=== PATIENT | male | born 1960 | race Caucasian/White ===

== ENCOUNTER 2022-11-25 09:20 | Day surgery (SDC) | payer BC, SELFPAY ==
[2022-11-25 09:45] VITALS: BP 166/101; PULSE 69; RESP 20; TEMP 36.2; O2SAT 96
[2022-11-25 09:47] VITALS: BMI 38.9
[2022-11-25] MEDS: SODIUM CHLORIDE 0.9 % (FLUSH) 10 ML SYRINGE IVF (10:00)
[2022-11-25] MEDS: LACTATED RINGERS 1000 ML 1,000 ML 100 ML IV (10:20)
[2022-11-25] MEDS: CEFAZOLIN 2 GM INJ IVP (10:45)
[2022-11-25] MEDS: BUPIVACAINE 0.25% 30 ML 10 ML INJECTION (10:50)
--- NOTE | 2022-11-25 11:16 | P.GSOP_ITS ---
Operative Note Date of procedure: 11/25/22 Pre-op diagnosis: Squamous cell carcinoma in Situ, dorsum of right hand Post-op diagnosis: Same Type of Procedure: Wide local excision of skin lesion on dorsum of right hand with primary closure Indications: Patient is a 62-year-old male, who presented to clinic with a nonhealing lesion. Biopsy of the area demonstrated squamous cell carcinoma in Situ. Due to the location of the lesion it was recommended that he pursue wide local excision in the operating room. Risks and benefits of operative intervention were discussed at length with the patient. Risks included but was not limited to: Bleeding, infection, risk of damage to surrounding structures, possible need for additional procedures and postoperative complications such as pneumonia, pulmonary emboli or IL. All questions and concerns were addressed with the patient agreeing to proceed. Procedure Description: After discussing the risks and benefits of the procedure, the patient signed informed consent.? The operative site was marked and the patient was brought to the operating room and placed on the operating table in supine position.? Care was taken to pad the patient's pressure points.?? The patient was then given sedation by anesthesia.?? The operative site was then prepped and draped in the usual sterile fashion.? A time-out was then performed. 1% lidocaine with epinephrine was injected into the surgical field. A vertical elliptical incision was made around the lesion with a scalpel to allow excision of .7 cm lesion with 0.5 cm margins (total width 1.5 cm). Subcutaneous tissues were dissected with a scalpel and the ellipse of skin was excised with a scalpel. It was marked with a marking short stitch superiorly and long stitch laterally. The lesion was then sent to pathology. Surgical field was examined for bleeding and any oozing was controlled with direct pressure and hand held ca utery. The incision was 6 cm and was closed in layers with 3-0 vicryl interrupted stitches for subdermal layer and with 4-0 monocryl subcuticular running stitch for skin. Steris strips and sterile dressing were applied over the incision. ? The patient tolerated the procedure well. Findings: Squamous cell carcinoma in Situ on the dorsum of the right hand Anesthesia: MAC Surgeon: Ary Mead MD Estimated blood loss (mL): 5 Additional Specimen Information: Skin lesion, dorsum of right hand Condition: stable Disposition: same day
[2022-11-25 11:20] VITALS: BP 114/73; PULSE 60; RESP 20; TEMP 36.8; O2SAT 95
--- NOTE | 2022-11-25 11:22 | W.ANESCHARGE ---
Anesthesia Charges Start Date/Time Anesthesia Start Date: 11/25/22 Anesthesia Start Time: 10:37 Stop Date/Time Anesthesia Stop Date: 11/25/22 Anesthesia Stop Time: 11:24
[2022-11-25 11:35] VITALS: BP 113/73; PULSE 56; RESP 20; O2SAT 95
[2022-11-25 11:45] VITALS: BP 116/65; PULSE 60; RESP 20; TEMP 36.8; O2SAT 93
[2022-11-25 12:00] VITALS: BP 132/85; PULSE 65; RESP 20; TEMP 36.5; O2SAT 96
--- NOTE | 2022-11-25 14:28 | W.ANESCHARGE ---
Anesthesia Charges Start Date/Time Anesthesia Start Date: 11/25/22 Anesthesia Start Time: 10:37 Stop Date/Time Anesthesia Stop Date: 11/25/22 Anesthesia Stop Time: 11:24
== END 2022-11-25 12:18 | disposition home or self-care (01) ==
PROVIDERS: PCP Surgery; Visit Provider Surgery
PROC: (CPT 11622; principal; 2022-11-25 10:45)
DX: C44.622 Squamous cell carcinoma of skin of right upper limb, including shoulder (principal)
CPT/HCPCS: 11622; 12042; 400; 88305; J0690; J2250; J2704; J3010; J3490; J7120

== ENCOUNTER 2022-12-08 07:41 | Day surgery (SDC) | payer BC, SELFPAY ==
[2022-12-08] VITALS (15 sets, daily range): BP systolic 127–164; BP diastolic 61–93; PULSE 68–83; RESP 16–20; TEMP 36.1–36.4; O2SAT 92–98; BMI 38.9
[2022-12-08] MEDS: LACTATED RINGERS 1000 ML 1,000 ML 100 ML IV ×2 (08:10→10:34)
[2022-12-08] MEDS: SODIUM CHLORIDE 0.9 % (FLUSH) 10 ML SYRINGE IVF (08:10)
[2022-12-08] MEDS: fentaNYL 100 MCG/2 ML inj IVP (08:34)
--- NOTE | 2022-12-08 08:34 | SUR.PREOP ---
Patient provided home covid negative results to RN.
--- NOTE | 2022-12-08 08:34 | SUR.PREOP ---
TIME?OUT:?0832 PT/[place] RN/Dr. Luis M MDA?VERIFICATION?OF?SURGICAL?SITE left shoulder,?PROCEDURE,?AND?CONSENT OBTAINED?PRIOR?TO?INVASIVE?PROCEDURE.
[2022-12-08] MEDS: MIDAZOLAM HCL 1 MG/ML inj IVP (08:35)
[2022-12-08] MEDS: CEFAZOLIN 2 GM in 0.9 % SODIUM CHLORIDE Mini-bag 100 ML IVPB (09:10)
--- NOTE | 2022-12-08 09:16 | W.PM.NB ---
Nerve Block Nerve Block Time Seen by Provider: 08:34 Date Seen: 12/08/22 Type of block requested by surgeon for post-operative analgesia: supraclavicular Side: left Time out performed: Yes Verification of patient name: Yes Verification of date of : Yes Site marking: site marked Name of person performing procedure: Luis M Continuous monitoring Was continuous monitoring of O2 sat, B/P, front desk monitor, recorded every 15 minutes?: Yes Procedure Checklist: sterile prep, needles and gloves Ultrasound guided. Images saved: Yes Medications given in 5ml increments after negative aspiration: Ropivicaine %: 0.5 mL: 20 Needle gauge: 22 Decadron (mg): 10 Precedex (mcg): 25 Patient tolerated procedure well: Yes Block Charges Block Charge (with Pro Fee): Brachial Plexus Use of Ultrasound Machine for Block: Yes- US Guidance/pain block
--- NOTE | 2022-12-08 09:16 | W.ANESCHARGE ---
Anesthesia Charges Start Date/Time Anesthesia Start Date: 12/08/22 Anesthesia Start Time: 08:58 Stop Date/Time Anesthesia Stop Date: 12/08/22 Anesthesia Stop Time: 11:45
[2022-12-08] MEDS: EPINEPHrine 1 MG in SODIUM CHLORIDE IRRIG SOLUTION 3,000 ML 9003 MG IRRIGATION ×6 (09:39→10:52)
--- NOTE | 2022-12-08 11:14 | PM.ORPRC ---
Procedure Note Date of procedure: 12/08/22 Procedure: PREOPERATIVE DIAGNOSES: 1. Left shoulder rotator cuff retear (history of prior rotator cuff repair remote past) 2. Carpal tunnel syndrome 3. Left ring trigger finger-flexor tenosynovitis POSTOPERATIVE DIAGNOSES: 1. Left shoulder rotator cuff retear (history of prior rotator cuff repair remote past) 2. Left shoulder anterior labral tearing 3. 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 Left shoulder grade 2 chondromalacia glenoid 5. Left shoulder retained foreign body (Ethibond suture from prior rotator cuff repair) 6. Carpal tunnel syndrome 7. Left ring trigger finger-flexor tenosynovitis NAME OF OPERATION: 1. Left shoulder arthroscopic rotator cuff rerepair supraspinatus and anterior infraspinatus 2. Left shoulder arthroscopic extensive glenohumeral debridement 3. Left shoulder arthroscopic removal of foreign body (Ethibond suture from prior rotator cuff repair) 4. Left open carpal tunnel release 5. Left ring trigger finger release. SURGEON: Arthur Zuñiga MD SENIOR RESTAURANT MANAGER: Paul Ambrose PA-C. Of note, a skilled judicial assistant was critical for this case to aide in patient positioning, suture manipulation, arm positioning, instrument positioning, and closure. ANESTHESIA: General plus preoperative supraclavicular block. EBL: Less than 50 mL IMPLANTS: Arthrex 5.5 mm BioComposite corkscrew suture anchor (x2); 5.5 mm BioComposite SwiveLock suture anchor (x2) TOURNIQUET: 10 minutes at 225 torr-forearm tourniquet COMPLICATIONS: None evident INDICATIONS: The patient is a pleasant, 62-year-old male who previously the experience rotator cuff tear and underwent surgical repair in the remote past. In recent time, he has noted increasing pain, weakness, and dysfunction of the left shoulder. Workup included physical exam and MRI. These both confirmed rotator cuff tearing. In addition, he has also experienced left hand numbness and tingling in the radial 3.5 digits as well as triggering/catching in his left ring finger. With all these factors, surgery is indicated for left shoulder rotator cuff rerepair, open carpal tunnel release, and open trigger finger release left ring finger. FINDINGS: Exam under anesthesia revealed stable shoulder with excellent range of motion. The diagnostic arthroscopy revealed grade 3 chondromalacia humeral head with some loose chondral tissue as well as grade 2 chondromalacia glenoid. The Subscapularis tendon was intact with a healthy attachment. The long head of the biceps tendon was intact also with a healthy origin. The superior rotator cuff tendon was found to be torn full-thickness throughout the breath of the supraspinatus and anterior 1/2 of the infraspinatus. There was retraction. Previous Ethibond suture was also encountered and removed during the procedure with a combination of arthroscopic scissors and Welaka. The labrum was torn in the anterior and superior aspects. No loose bodies were identified within the pouch or subscapularis recess. PROCEDURE: Following a thorough discussion of risks, benefits, and alternatives, consent was obtained and the left shoulder was marked. The patient was brought to the operating room and placed supine on the operating table. Induction of anesthesia was completed after preoperative supraclavicular block was administered in preop holding. Appropriate time out was performed identifying proper patient, site, and procedure. 2 g IV Ancef was administered within 1 hour of incision preoperatively. The left upper extremity was prepped and draped in the appropriate sterile fashion using ChloraPrep prep. This was after the patient was positioned in the beach chair with their head in neutral alignment and all bony prominences well padded. The shoulder was insufflated with 20mL of normal saline via an 18g spinal needle from a posterior approach. An 11 blade skin incision allowed a blunt trochar to be inserted and diagnostic arthroscopy to be performed with the findings as noted above. An anterior portal was established with an outside in technique. This allowed the probe to be inserted and confirm the diagnostic arthroscopic findings. The shaver was then inserted and allowed debridement of the anterior and superior labrum as well as debridement of the glenoid and humeral head chondral tissue loose chondral flaps. Following this, the upper border subscapularis was probed and found to be stable with an excellent attachment as was the biceps. Thereafter, the subacromial space was entered. Here, given a previous subacromial decompression and distal clavicle excision were performed and were adequate, these procedures were not necessary. Here, the Ethibond suture was readily encountered. This was removed with a combination of arthroscopic scissors and Welaka to grasp the entire suture and removed from subacromial space/humeral head. Further inspection of the supraspinatus and infraspinatus rotator cuff was performed. This identified the tear as noted above. The margins of the tear were debrided, and the greater tuberosity was debrided with a combination of the apollo cautery, shaver, and bur on reverse setting. After gentle decortication of the humeral head with a torpedo shaver, 2 separate 5.5 mm corkscrew suture anchors were selected for medial fixation. This allowed us to pass the double loaded anchor tails and tied down the medial row taking the tension off gradually from her repair. This allowed excellent reapproximation of the rotator cuff tissue to the greater tuberosity. Beyond that, 2 lateral row SwiveLock suture anchors were selected with 1 tail from each of the tied knots brought to each of the lateral row anchors. Excellent footprint compression was achieved. The shoulder was placed through range of motion with excellent stability to the rotator cuff. At this stage, attention was turned to the left open carpal tunnel release. A forearm tourniquet sterilely was applied, a ChloraPrep was reapplied to the hand, and after allowing 3 minutes dry, and the tourniquet inflated after Esmarch exsanguination, a longitudinal incision was made in line with the radial border the ring finger staying proximal to Sullivan's cardinal line but approximately 1 cm distal to the distal wrist crease. Sharp incision through skin, subcutaneous tissue, palmar fascia, and transverse carpal ligament allowed us to clearly identify complete release of the carpal tunnel from proximal to distal extents. Metzenbaum scissors was also utilized to release the distal forearm fascia under direct visualization. We then turned our attention to the left ring trigger finger release. A longitudinal incision was made in line with the ring finger metacarpal head region. Sharp incision through skin and blunt dissection through subcutaneous tissue allowed identification of the A1 toi. This was released sharply with a combination of 15 blade scalpel and tenotomy scissors. We could see the entire extent of the toi to be released. The tendons were then retracted out of the wound and shows some striations within the tendon itself. At this stage, thorough irrigation normal saline was performed of the open wounds. All wounds were closed in interrupted fashion. For the shoulder, Monocryl suture was used in a buried knot manner. For the hand, 4-0 nylon was utilized in in interrupted fashion. Dressings were applied. Sling was applied. The patient was awoken from anesthesia and transferred to the PACU in stable condition. A skilled judicial assistant was critical for this case to aid in patient positioning, limb positioning, skill to manipulate arthroscopic instruments and camera, suture management, patient safety, and closure. PLAN: 1. Elbow, forearm, wrist and digit range of motion of operative extremity as tolerated. 2. Encouraged ice. 3. Percocet for pain as needed. 4. Sling at all times except for ROM and showering. 5. Follow up with PA visit in 1-2 weeks for wound check and suture removal for the hand. Initiate physical therapy following that visit for passive range of motion. Initiate active assisted range of motion at 4 weeks depending on tear size. May do pendulums now.
--- NOTE | 2022-12-08 11:55 | W.ANESCHARGE ---
Anesthesia Charges Start Date/Time Anesthesia Start Date: 12/08/22 Anesthesia Start Time: 08:58 Stop Date/Time Anesthesia Stop Date: 12/08/22 Anesthesia Stop Time: 11:45
[2022-12-08] MEDS: OxyCODONE/APAP 5-325 TABLET PO (13:05)
== END 2022-12-08 13:47 | disposition home or self-care (01) ==
PROVIDERS: PCP Surgery; Visit Provider Orthopaedic Surgery Sports Medicine
PROC: (CPT 29805; principal; 2022-12-08 09:15)
PROC: (CPT 64721; 2022-12-08 09:15)
PROC: (CPT 26055; 2022-12-08 09:15)
DX: M75.102 Unspecified rotator cuff tear or rupture of left shoulder, not specified as traumatic (principal); G56.02 Carpal tunnel syndrome, left upper limb; M65.342 Trigger finger, left ring finger; G89.18 Other acute postprocedural pain; M94.212 Chondromalacia, left shoulder; S43.432A Superior glenoid labrum lesion of left shoulder, initial encounter
CPT/HCPCS: 64721; 26055; 29827; 29823; 01630; 64415; 76942; 82962; A9270; C1713; J0171; J0330; J0690; J1100; J2250; J2370; J2405; J2704; J2795; J3010; J7120; L3670

== ENCOUNTER 2023-03-02 13:45 | Outpatient (RCR) | payer BC, SELFPAY | END 2023-05-16 09:10 | disposition home or self-care (01) | PROVIDERS: PCP Surgery; Visit Provider Physician Assistant Surgical | DX: Z98.890 Other specified postprocedural states (principal); Z51.89 Encounter for other specified aftercare | CPT/HCPCS: 97035; 97110; 97140; 97162; 97165 ==

== ENCOUNTER 2023-11-15 16:54 | Emergency (ER) | payer BC, SELFPAY ==
[2023-11-15 17:06] VITALS: BP 196/100; PULSE 87; RESP 18; TEMP 36.7; O2SAT 96; BMI 37.9
--- NOTE | 2023-11-15 17:31 | ED_ITS ---
HPI - Extremity Injury (Upper) General Chief Complaint: Extremity Pain/Injury, Upper Stated Complaint: L arm broke Time Seen by Provider: 11/15/23 17:26 History of Present Illness HPI narrative: This 63-year-old male comes in with an injury to his right wrist. He states that he was walking out of his garage and slipped on ice and fell onto his right outstretched hand. He states he noted a deformity immediately and attempted to correct the position prior to coming here. He does not describe any other injury. He did not have loss of consciousness. Related Data Home Medications Medication Instructions Recorded Confirmed blood sugar diagnostic (Accu-Chek #10 ea 10/08/22 03/08/23 Treasure Plus test strips) ergocalciferol (vitamin D2) 1,250 50,000 unit PO 2XW 10/08/22 11/15/23 mcg (50,000 unit) capsule (Vitamin D2) fenofibrate micronized 200 mg 200 mg PO QDAY 10/08/22 11/15/23 capsule fluticasone propionate 50 2 spray intranasal BID 10/08/22 11/15/23 mcg/actuation nasal spray,suspension losartan 100 mg tablet 100 mg PO DAILY 10/08/22 11/15/23 metoprolol succinate 100 mg 100 mg PO DAILY 10/08/22 11/15/23 tablet,extended release 24 hr pantoprazole 40 mg tablet,delayed 40 mg PO DAILY 10/08/22 11/15/23 release pen needle, diabetic 31 gauge x #1,200 ea 10/08/22 03/08/2316 (BD Ultra-Fine Short Pen Needle) aspirin 81 mg tablet,delayed 81 mg PO QDAY 10/12/22 11/15/23 release insulin glargine 100 unit/mL (3 unit subcut 11/15/23 mL) subcutaneous pen (Lantus Solostar U-100 Insulin) Previous Rx's Medication Instructions Recorded hydrocodone 5 mg-acetaminophen 325 1 tab PO Q4-6H PRN pain #20 tabs 11/15/23 mg tablet Allergies Allergy/AdvReac Type Severity Reaction Status Date / Time adhesive tape Allergy Rash Verified 03/08/23 09:51 amoxicillin [From Augmentin] Allergy nausea/vomi Verified 03/08/23 09:51 ting clavulanic acid Allergy nausea/vomi Verified 03/08/23 09:51 [From Augmentin] ting codeine Allergy Hives Verified 03/08/23 09:51 latex Allergy Rash Verified 03/08/23 09:51 lisinopril Allergy Cough Verified 03/08/23 09:51 metformin Allergy Rash Verified 03/08/23 09:51 rosuvastatin Allergy myalgia Verified 03/08/23 09:51 gemfibrozil AdvReac constipatio Verified 03/08/23 09:51 n Review of Systems Status of ROS: Reports: 10 or more systems reviewed and unremarkable except as noted in History and below Narrative: Constitutional: No fevers, no weight gain or loss. Eyes: No discharge. No vision changes. HENT: No congestion, no sore throat, no ear pain. Cardiovascular: No chest pain, no palpitations. Respiratory: No shortness of breath, no wheezes, no cough. Gastrointestinal: No abdominal pain, no vomiting, no diarrhea. Genitourinary: No dysuria, no hematuria. Musculoskeletal: Right wrist injury as described above. Skin: No rashes, no pruritis. Neurological: No dizziness, weakness, sensory change, speech change. Endo/Heme/Allergies: No bruising or bleeding. No polydipsia. Pysch: no suicidality, no anxiety, no insomnia. All other systems reviewed and are negative. [facility] Medical History Shoulder pain ?M25.519 - Pain in unspecified shoulder (ICD-10) Right shoulder pain ?M25.511 - Pain in right shoulder (ICD-10) Right knee pain ?M25.561 - Pain in right knee (ICD-10) Pain of right hand ?M79.641 - Pain in right hand (ICD-10) Vitamin D deficiency ?E55.9 - Vitamin D deficiency, unspecified (ICD-10) KANDI (obstructive sleep apnea) ?G47.33 - Obstructive sleep apnea (adult) (pediatric) (ICD-10) Myalgia ?M79.10 - Myalgia, unspecified site (ICD-10) Mixed hyperlipidemia ?E78.2 - Mixed hyperlipidemia (ICD-10) Lumbar spinal stenosis ?M48.061 - Spinal stenosis, lumbar region without neurogenic claudication (ICD-10) Hypertension ?I10 - Essential (primary) hypertension (ICD-10) GERD (gastroesophageal reflux disease) ?K21.9 - Gastro-esophageal reflux disease without esophagitis (ICD-10) Pancreatitis ?K85.90 - Acute pancreatitis without necrosis or infection, unspecified (ICD- 10) Diabetes mellitus ?E11.9 - Type 2 diabetes mellitus without complications (ICD-10) Surgical History S/P trigger finger release (12/08/22) ?Z98.890 - Other specified postprocedural states (ICD-10) History of carpal tunnel surgery of left wrist (12/08/22) ?Z98.890 - Other specified postprocedural states (ICD-10) Status post arthroscopy of left shoulder (12/08/22) ?Z98.890 - Other specified postprocedural states (ICD-10) Hx of tonsillectomy ?Z90.89 - Acquired absence of other organs (ICD-10) History of open reduction and internal fixation (ORIF) procedure (~1995) ?Z98.890 - Other specified postprocedural states (ICD-10) History of open reduction and internal fixation (ORIF) procedure (~1992) ?Z98.890 - Other specified postprocedural states (ICD-10) History of repair of left hip joint ?Z98.890 - Other specified postprocedural states (ICD-10) History of back surgery ?Z98.890 - Other specified postprocedural states (ICD-10) Status post arthroscopy of left shoulder (08/04/04) ?Z98.890 - Other specified postprocedural states (ICD-10) S/P trigger finger release (07/11/18) ?Z98.890 - Other specified postprocedural states (ICD-10) History of carpal tunnel surgery of right wrist (07/11/18) ?Z98.890 - Other specified postprocedural states (ICD-10) Status post right rotator cuff repair (09/03/20) ?Z98.890 - Other specified postprocedural states (ICD-10) Social History (Reviewed 11/09/22 @ 14:27 by Bren Oakes ~ RESIDENCY PROGRAM COORDINATOR, RESIDENCY PROGRAM COORDINATOR) Smoking Status: Never smoker Do you use any of these nicotine containing products: None Second hand tobacco smoke exposure: No How often do you have a drink containing alcohol: 2-3 times a week How often do you have six or more drinks on one occasion: Never AUDIT-C Alcohol total score: 3 Non-prescribed substance use: denies use Exam Narrative: Exam Narrative: Constitutional: Well-developed, well-nourished, no acute distress. HEENT: Normocephalic, atraumatic. Neck: Normal range of motion. Nontender. Supple. Heart: Regular. No murmurs. Normal rate. Intact distal pulses. Lungs: Clear to auscultation. No chest discomfort. No wheezes, rhonchi, or rales. Abdomen: Normal bowel sounds. Nontender. No rebound tenderness. Genitalia: Deferred. Back: No midline tenderness. Normal range of motion. Extremities: Tenderness at the right wrist. Mild deformity In this area. Skin: Intact. No rash. Warm. No erythema or pallor. Neurologic: No altered sensation. No weakness. Alert and oriented. Psychiatric: No suicidality. No anxiety or depression. No insomnia. Nursing notes and vitals signs are reviewed. Const: Vital Signs, click to edit/add: Vital Signs - 24 hr 11/15/23 17:06 Temperature 98.0 F Pulse Rate [Right Pulse Oximeter] 87 Respiratory Rate 18 Blood Pressure [Ri ght Upper Arm] 196/100 H Pulse Oximetry 96 Oxygen Delivery Me thod Room Air Course Vital Signs Vital signs: Initial Vital Signs Temperature 98.0 F 11/15/23 17:06 Temperature Source Temporal Artery Scan 11/15/23 17:06 Pulse Rate 87 11/15/23 17:06 Respiratory Rate 18 11/15/23 17:06 Blood Pressure 196/100 H 11/15/23 17:06 Blood Pressure Mean 132 H 11/15/23 17:06 Blood Pressure Position Sitting 11/15/23 17:06 Pulse Oximetry 96 11/15/23 17:06 Oxygen Delivery Method Room Air 11/15/23 17:06 Vital Signs Temperature 98.0 F 11/15/23 17:06 Pulse Rate 87 11/15/23 17:06 Respiratory Rate 18 11/15/23 17:06 Blood Pressure 196/100 H 11/15/23 17:06 Pulse Oximetry 96 11/15/23 17:06 Oxygen Delivery Method Room Air 11/15/23 17:06 Temperature 98.0 F 11/15/23 17:06 Pulse Rate 87 11/15/23 17:06 Respiratory Rate 18 11/15/23 17:06 Blood Pressure 196/100 H 11/15/23 17:06 Pulse Oximetry 96 11/15/23 17:06 Oxygen Delivery Method Room Air 11/15/23 17:06 MDM - Extremity Injury (Upper) MDM Narrative Medical decision making narrative: This patient comes in with an injury to his right wrist. He states that there was an obvious deformity when the injury 1st occurred and he used his left hand to correct its position rather immediately after the injury. X-ray imaging here does show intra-articular compacted fracture of the distal radius and likely and ulnar involvement. The position is satisfactory for splinting without any further manipulation. A volar splint was placed in the right forearm and wrist using Ortho Glass material. Patient is advised to follow-up with orthopedic clinic. He did receive an intramuscular injection of Toradol and a prescription for [place]. Discharge Plan Discharge Clinical Impression: Fracture of wrist Patient Disposition: Home, Self-Care Condition: Stable Additional Instructions: Wear splint and sling. Take medication as needed and directed. Follow-up with orthopedic clinic for ongoing management. Call [phone] for appointment. Prescriptions: New hydrocodone-acetaminophen 5-325 mg tablet 1 tab PO Q4-6H PRN (Reason: pain) Qty: 20 0RF No Action losartan 100 mg tablet 100 mg PO DAILY (DME) Accu-Chek Treasure Plus test strp Strip See Rx Instructions .ROUTE .MEDSUPPLY Qty: 10 Rx Instructions: As directed (DME) pen needle, diabetic [BD Ultra-Fine Short Pen Needle] 31 gauge x 5/16 needle See Rx Instructions .ROUTE .MEDSUPPLY Qty: 1200 Rx Instructions: As directed ergocalciferol (vitamin D2) [Vitamin D2] 1,250 mcg (50,000 unit) capsule 50,000 unit PO 2XW Rx Instructions: and pantoprazole 40 mg tablet,delayed release (DR/EC) 40 mg PO DAILY fenofibrate micronized 200 mg capsule 200 mg PO QDAY metoprolol succinate 100 mg tablet extended release 24 hr 100 mg PO DAILY fluticasone propionate 50 mcg/actuation spray,suspension 2 spray intranasal BID aspirin 81 mg tablet,delayed release (DR/EC) 81 mg PO QDAY insulin glargine [Lantus Solostar U-100 Insulin] 100 unit/mL (3 mL) insulin pen subcut Follow Up/Referrals: Paul Medina MD [Primary Care Provider] - Stand Alone Forms: [employer] Info Instructions
--- NOTE | 2023-11-15 17:31 | CRLHL7_ITS ---
For Patients: As a result of the Century Cures Act, medical imaging exams and procedure reports are released immediately into your electronic medical record. You may view this report before your referring provider. If you have questions, please contact your health care provider. INDICATION: Fall. TECHNIQUE: Right wrist 3 view. COMPARISON: None. FINDINGS: There is an acute comminuted intra-articular fracture of the distal radius. No significant displacement. Acute mildly displaced fracture of the ulnar styloid process. Possible fracture in the distal pole of the scaphoid bone. No dislocation. Mild degenerative changes of the 1st CMC joint. Soft tissue swelling about the wrist. IMPRESSION: 1. Acute comminuted intra-articular fracture of the distal radius. 2. Acute mildly displaced fracture of the ulnar styloid process. 3. Possible fracture in the distal pole of the scaphoid bone. Dictated by Ryann Matos MD @ 11/15/2023 6:25:10 PM (Electronically Signed)
--- OUTSIDE RECORDS SUMMARY | 2023-11-15 17:41 | XMS_ITS | Clinical Summary ---
Author Name Unknown Organization [employer] [facility] [facility] Address [place], [place] [address] Care Team Providers Care Audiology Doctor Name Role Phone Paul Medina MD Primary Care Provider [phone] Allergies Active Allergy Reactions Criticality Noted Date Comments Adhesive Tape-Silicones Rash 07/16/2011 Foam tape Amoxicillin-Pot Clavulanate Nausea And Vomiting 01/21/2015 Venom-Honey Bee Edema 08/05/2017 Codeine Rash 01/14/2007 Gemfibrozil Constipation,Intoler ance- Can't Take 01/13/2010 Latex Rash 05/21/2014 Lisinopril Cough 02/09/2019 Metformin Rash 08/05/2017 [place]-3 Acid Ethyl Esters Constipation 01/14/20 10 Etuzs-3-Itm-Epa-Fish Oil-Coq10 Taste, Changes 01/13/2010 Rosuvastatin Myalgia 12/07/2021 Medications Medication Sig Dispensed Refills Start Date End Date Status blood-glucose meterIndications:Ty pe 2 diabetes mellitus without complication, with long-term current use of insulin (HC) 1 Device. Check blood sugars 6 times per day 1 Device 0 9 Active aspirin (ECOTRIN) 81 mg enteric coated tabletIndications:T ype 2 diabetes mellitus without complication, with long-term current use of insulin (HC) Take 1 Tablet (81 mg) by mouth once daily with a meal. 90 tablet. 0 2 Active fluticasone (50 mcg per actuation) nasal solution (FLONASE)Indication s:Nasal congestion APPLY TWO SPRAYS INTO BOTH NOSTRILS TWICE A DAY 48 g 2 2 Active blood sugar diagnostic (Accu-Chek Treasure Plus test strp) stripIndications:Ty pe 2 diabetes mellitus without complication, with long-term current use of insulin (HC) USE TO TEST BLOOD GLUCOSE 3 TIMES DAILY DIRECTED 600 Each 3 2 Active ergocalciferol (Vitamin D2) 50,000 unit capsuleIndications: Vitamin D deficiency Twice weekly on Wednesdays and Saturdays 25 Capsule 3 2 Active fenofibrate micronized (LOFIBRA) 200 mg capsuleIndications: Hyperlipidemia, unspecified hyperlipidemia type Take 1 Capsule (200 mg) by mouth once daily with a meal. 90 Capsule 3 3 Active ferrous sulfate 325 mg delayed release tabletIndications:A nemia, unspecified type Take 1 Tablet (325 mg) by mouth once daily with a meal. 90 Tablet 3 3 Active insulin detemir U-100 (LEVEMIR) 100 unit/mL (3 mL) penIndications:Type 2 diabetes mellitus with diabetic polyneuropathy, with long-term current use of insulin (HC) Inject 100 units subcutaneous two times daily. 180 mL 3 3 Active losartan (COZAAR) 100 mg tabletIndications:H ypertension, unspecified type Take 1 Tablet (100 mg) by mouth once daily. 90 Tablet 3 3 Active metoprolol succinate (TOPROL XL) 100 mg Sustained-Release tabletIndications:H ypertension, unspecified type Take 1 Tablet (100 mg) by mouth once daily. Do not fill until requested 90 Tablet 3 3 Active pantoprazole (PROTONIX) 40 mg delayed-release tabletIndications:D ysphagia, unspecified type Take 1 Tablet (40 mg) by mouth once daily. 90 Tablet 3 3 Active pen needle, diabetic (BD Insulin Pen Needle UF) 31 gauge x 5/16Indications:Ty pe 2 diabetes mellitus without complication, with long-term current use of insulin (HC) For administering insulin at home. 200 Each 3 3 Active amLODIPine (NORVASC) 5 mg tabletIndications:H ypertension, unspecified type Take 1 Tablet (5 mg) by mouth once daily. 90 Tablet 3 3 Active evolocumab (Repatha SureClick) 140 mg/mL subcutaneous pen injectorIndications :Hyperlipidemia, unspecified hyperlipidemia type Inject 1 mL (140 mg) subcutaneous every 2 weeks. Inject into abdomen, thigh, or upper arm; rotate injection sites. 6 mL 0 3 Active Lantus Solostar U-100 Insulin 100 unit/mL (3 mL) penIndications:Type 2 diabetes mellitus with diabetic polyneuropathy, with long-term current use of insulin (HC) Inject 100 units subcutaneous two times daily. Product desired: LANTUS SOLOSTAR 180 mL 3 4 Active semaglutide (Ozempic) 2 mg/3 mL penIndications:Type 2 diabetes mellitus with diabetic polyneuropathy, with long-term current use of insulin (HC) Inject 0.75 mL (0.5 mg) subcutaneous once weekly. 3 mL 2 4 Active semaglutide (Ozempic) 2 mg/3 mL penIndications:Type 2 diabetes mellitus with diabetic polyneuropathy, with long-term current use of insulin (HC) Inject 0.375 mL (0.25 mg) subcutaneous once weekly for 28 days, THEN 0.75 mL (0.5 mg) once weekly for 28 days. 3 mL 1 3 11/09/19 24 Discontinu ed(*Medica tion adjustment ) Active Problems Problem Noted Date Diagnosed Date Ectatic aorta 11/13/2023 Overview: 3.2 cm on ultrasound 10/2023 - repeat recommended 3 years COVID-19 virus infection 03/16/2023 Sensorineural hearing loss, bilateral 12/02/2022 Spondylolisthesis 02/04/2022 Spinal stenosis, lumbar juan alberto on, with neurogenic claudication 02/04/2022 Type 2 diabetes mellitus wit h diabetic polyneuropathy, with long-term current use of insulin 09/03/2021 KANDI (10/11/2005 AHI-34 02/26/2019 Gastroesophageal reflux disease 09/06/2017 Allergic rhinitis 03/08/2013 Recurrent pancreatitis 07/16/2011 S/P Lumbar L4-Sacrum Fusion 01/08/2010 Vitamin D deficiency 04/16/2009 Single vessel CAD (mod stenosis LAD per CTA 01/28 ) 08/29/2008 Pulmonary nodules 07/31/2008 Overview: Stable in 2013 with no further follow up recommended. Unspecified essential hypertension 07/17/2007 Other and unspecified hyperlipidemia 01/16/2007 Resolved Problems Problem Noted Date Diagnosed Date Resolved Date Type 2 diabetes mellitus wit hout complication, with long-term current use of insulin 09/06/2017 11/04/2022 Prediabetes 12/10/2014 09/06/2017 Hydrocele, left 05/12/2014 12/10/2014 Routine adult health maintenance 04/30/2013 05/12/2014 Overview: Colonoscopy 04/2013 small NSAID ulcer on ICV, repeat in 10 years Vitamin D deficiency 02/11/2012 014 Right hydrocele 01/11/2012 03/08/2013 Obesity, unspecified 11/05/2011 023 Myalgia and myositis, unspecified 11/05/2011 11/04/2022 Acute pancreatitis 03/09/2010 1 High triglycerides 01/31/2009 4 Sleep apnea 08/29/2008 11/04/2022 Other diseases of lung, not elsewhere classified 08/11/2007 01/16/2020 ABNORMAL GLUCOSE, OTHER 07/17/200711/24 Overview: pre-diabetes Chest pain, unspecified 01/16/2007 1103/2008 Encounters Date Type Department Care Team Description 11/09/[address] [facility] [address] [place] [address] Hallie Drake NP Follow Up (Patient requests to hold off until January 2024 for prevention fu.) 11/09/[address] [facility] [address] [place] [address] Hallie Drake, PARLIAMENTARY ARCHIVIST Cardiology Appointment 11/08/2023 10:30 AM QUANTITATIVE ANALYST DEVELOPER Ancillary Procedure [facility] [address] [place] [address] 11/08/2023 Travel 11/05/2023 Travel 11/02/[address] [facility] [address] [place] [address] Hallie Drake NP Cardiology Appointment 10/25/2023 10:55 AM QUANTITATIVE ANALYST DEVELOPER Office Visit [facility] [address] [place] [address] Paul Medina MD Medicare FIRST ANNUAL Visit (63 yr old male) 10/25/2023 Travel 10/20/[address] [facility] [address] [place] [address] Hallie Drake NP <No scans attached> 10/20/2023 Travel 10/12/2023 9:00 AM QUANTITATIVE ANALYST DEVELOPER Office Visit [address] [place] [address] Jerrica Damon MD Consult; CV Preventive Cardiology New (chol) 10/12/[address] [place] [address] Jerrica Damon MD 10/12/[address] [place] [address] Jerrica Damon MD 10/09/2023 Travel from Last 3 Months Immunizations Name Administration Dates Next Due AMB Influenza, IIV4 PF (=>6 mos Flulaval,Fluzone Fluarix)(Flu Clinic Only) 08/11/2019 COVID-19 Vaccine Spikevax (M oderna 50mcg/0.5mL) 12YO+ [id number] Formula PF 08/30/2023 COVID-19 vaccine ([employer]-Bio NTech 30mcg/0.3mL) 12YO+ BIVALENT PF, MDV 08/10/2022 COVID-19 vaccine (Pfizer-Bio NTech 30mcg/0.3mL) PF MDV 08/26/2021,02/10/2021,01/20/2021 Influenza, IIV3 (Age >=3 years) 07/20/20 20,07/31/2017,08/02/2013,2010,08/11/2007 Influenza, IIV4 08/10/2022, 1,07/20/2020,2017,08/20/2014 Influenza, IIV4 (=>6mos) MDV 07/31/2017 Influenza, Inactivated AIIV4 (Age 65+ Years) Preserv Free 07/22/2023 Pneumococcal Conj 20-valent (Prevnar 20) 07/22/2023 Pneumococcal conj 13-Valent (Prevnar 13) 10/05/2021 Td (Age >=7 Years) 08/24/2005 Tdap 03/04/2016 Zoster (Shingrix-RZV, recombinant) 08/28/2019, Family History Medical History Relation Name Comments Hypertension Brother 2 x 2 Other Brother 3 cirrhosis--alco hol Lung cancer Father Other Father COPD Leukemia Maternal Grandmother Cancer-breast Mother Heart attack Mother Other Mother COPD Hyperlipidemia Other several Anesthesia Problem No Family History Blood Disease No Family History Relation Name Status Comments Brother 1 Brother 2 Brother 3 Father Maternal Grandmother Mother Alive Other Social History Tobacco Use Types Packs/Day Years Used Date Smoking Tobacco: Former Cigarettes 1.5 7 0 10/24/1977 - 10/24/1984 Smokeless Tobacco: Never Tobacco Cessation:Counseling Given: Not Answered Alcohol Use Standard Drinks/Week Comments Yes 0 (1 standard drink = 0.6 oz pur e alcohol) occassionally PHQ-2 Answer Date Recorded PHQ-2 TOTAL SCORE 0 10/25/2023 Social Connections Answer Date Recorded Frequency of Communication with Friends and Fami ly 0 10/25/2023 Financial Resource Strain Answer Date R ecorded Difficulty of Paying Living Expenses 3 10/25/2023 Difficulty of Paying Living Expenses Not on file 10/25/2023 Food Insecurity Answer Date Recorded Worried About Running Out of Food in the Last Ye ar 1 10/25/2023 Transportation Needs Answer Date Record ed Lack of Transportation (Medical) 1 10/25/2023 Housing Stability Answer Date Recorded Unable to Pay for Housing in the Last Year 1 10/25/2023 Sex and Gender Information Value Date Recorded Sex Assigned at Not on file Gender Identity Not on file Sexual Orientation Not on file Obstetrics History Last Filed Vital Signs Vital Sign Reading Time Taken Comments Blood Pressure 138/77 10/25/2023 11:03 AM QUANTITATIVE ANALYST DEVELOPER Pulse 72 10/25/2023 11:03 AM QUANTITATIVE ANALYST DEVELOPER Temperature 37.5 ??C (99.5 ??F) 02/11/2022 1:26 PM CD T Respiratory Rate 18 02/08/2022 8:33 AM CDT Oxygen Saturation 95% 10/25/2023 11: 00 AM QUANTITATIVE ANALYST DEVELOPER Inhaled Oxygen Concentration - - Weight 134.3 kg (296 lb 1.6 oz) 024 11:00 AM QUANTITATIVE ANALYST DEVELOPER Height 187.6 cm (6' 1.86) 10/25/2023 1 1:00 AM QUANTITATIVE ANALYST DEVELOPER Body Mass Index 38.16 10/25/2023 11:00 AM QUANTITATIVE ANALYST DEVELOPER Plan of Treatment Upcoming Encounters Date Type Department Care Team (Late st Contact Info) Description 12/05/2023 10:20 AM QUANTITATIVE ANALYST DEVELOPER Procedure Only [facility] [address] [place] [address] Paul Medina MD [address] [place] [address] 01/24/2024 10:55 AM CDT Office Visit [facility] [address] [facility] [place] [address] Paul Medina MD [address] [place] [address] Health Maintenance Due Date Last Done Comments Medicare Wellness for age 65+ 10/24/2024 10/25/2023 BMI (ht and wt on same day) for age 18+ 10/25/2024 10/25/2023, 10/12/2023, 11/23/2022, Additional history exists Depression screening for age 12+ 10/25/2024 10/25/2023, 07/26/2023, 07/26/2023, Additional history exists Tetanus booster 03/04/2026 03/04/2016, 08/24/2005 Lipids for age 45-75 10/25/2028 10/25/2023, 07/22/2023, 10/04/2022, Additional history exists Colonoscopy through age 75 12/16/203112/16, 12/16/2021, 12/16/2021, Additional history exists Tdap Completed 03/04/2016 Hepatitis C screening for ag e 18-79 Completed 03/12/2019 Zoster (shingles) series for age 50+ Completed 08/28/2019, 07/07/2018 HIV for age 15-65 Completed 07/22/2023 Influenza for age 65+ Completed 07/22/2023 , 08/10/2022, 08/19/2021, Additional history exists Pneumococcal series for age 65+ Completed , 10/05/2021 COVID-19 vaccine series Completed 08/30/20, 08/10/2022, 08/26/2021, Additional history exists AAA screening age 65-74 Completed 11/08/2023, 05/10 Medical Devices Implanted Type Area Pharmacist Hospital Device Identifier Shelf Expiration Date Model / Serial / Lot Ankur Lmbr 70x5.5mm Solera 5.5/6 Cvd Titnm - [id number] Implanted:Qty : 1 on 02/04/2022 by Gee Ramsey MD at [facility] N/A: Lumbar Vertebrae [employer] Spine/Ortho [id number] / / Ankur Lmbr 40x5.5mm Solera 5.5/6 Cvd Titnm - [id number] Implanted:Qty : 1 on 02/04/2022 by Gee Ramsey MD at [facility] N/A: Lumbar Vertebrae [employer] Spine/Ortho [id number] / / Set Screw Lmbr Ant 5.5mm Solera Break Off - [id number] Implanted:Qty : 5 on 02/04/2022 by Gee Ramsey MD at [facility] N/A: Lumbar Vertebrae Med[employer] Spine/Ortho [id number] / / Screw Lmbr Post 7.5x50mm Solera 5.5/6 Va Cocr - [id number] Implanted:Qty : 3 on 02/04/2022 by Gee Ramsey MD at [facility] N/A: Lumbar Vertebrae [employer] Spine/Ortho [id number] / / Screw Lmbr Post 7.5x55mm Solera 5.5/6 Va Cocr - [id number] Implanted:Qty : 2 on 02/04/2022 by Gee Ramsey MD at [facility] N/A: Lumbar Vertebrae [employer]onic Spine/Ortho [id number] / / Bone 1-4mm 60cc Medtronic Fine Canclls Freeze Dried - [id number] Implanted:Qty : 1 on 02/04/2022 by Gee Ramsey MD at [facility] N/A: Lumbar Vertebrae [employer] Spine/Ortho 02/03/2026 [id number] / [id number] / Bone Matrix 1cc Vineet Dbf Putty Dbm - [id number] Implanted:Qty : 1 on 02/04/2022 by Gee Ramsey MD at [facility] N/A: Lumbar Vertebrae [employer] Spine/Ortho 12/14/2023 [id number] / [id number] / Spacer Catalyft 7mm Pl40 Lng - [id number] Implanted:Qty : 1 on 02/04/2022 by Gee Ramsey MD at [facility] N/A: Lumbar Vertebrae Med[employer] Spine/Ortho 12/25/2029 [id number] / / [id number] Explanted Type Area Pharmacist Hospital Device Identifier Shelf Expiration Date Model / Serial / Lot Locknuts Explanted:Qty: 6 on 02/04/2022 by Gee Ramsey MD at [facility] N/A: Lumbar Vertebrae Screws Explanted:Qty: 6 on 02/04/2022 by Gee Ramsey MD at [facility] N/A: Lumbar Vertebrae Rods Explanted:Qty: 2 on 02/04/2022 by Gee Ramsey MD at [facility] N/A: Lumbar Vertebrae Procedures Procedure Name Priority Date/Time Associated Diagnosis Comments US ABD AORTA SCREENING Routine 11/08/2023 11:59 AM QUANTITATIVE ANALYST DEVELOPER Screening for AAA (aortic abdominal aneurysm) URINE ALBUMIN TO CREATININE RATIO, RANDOM Routine 10/25/2023 10:52 AM QUANTITATIVE ANALYST DEVELOPER Type 2 diabetes mellitus with diabetic polyneuropathy, with long-term current use of insulin (HC) HEMOGLOBIN Add On 10/25/2023 10:49 AM QUANTITATIVE ANALYST DEVELOPER Anemia, unspecified type LIPID PANEL Routine 10/25/2023 10:49 AM QUANTITATIVE ANALYST DEVELOPER Hyperlipidemia, unspecified hyperlipidemia type HEMOGLOBIN A1C Routine 10/25/2023 10:49 AM QUANTITATIVE ANALYST DEVELOPER Type 2 diabetes mellitus with diabetic polyneuropathy, with long-term current use of insulin (HC) BASIC METABOLIC PANEL Routine 10/25/2023 10:49 AM QUANTITATIVE ANALYST DEVELOPER Hypertension, unspecified type PSA TOTAL SCREEN Routine 10/25/2023 10:4 9 AM QUANTITATIVE ANALYST DEVELOPER Prostate cancer screening from Last 3 Months Results * US ABD AORTA SCREENING [[id number]] (11/08/2023 11:59 AM QUANTITATIVE ANALYST DEVELOPER) Anatomical Region Laterality Modality Abdomen, AORTA Ultrasound 11/10/2023 6:47 AM QUANTITATIVE ANALYST DEVELOPER Narrative 11/10/2023 6:47 AM QUANTITATIVE ANALYST DEVELOPER For Patients: ??As a result of the Cures Act, medical imaging exams and procedure reports are released immediately into your electronic medical record. ??You may view this report before your referring provider. ??If you have questions, please contact your health care provider. Examination: US abdominal aorta Indication: Abdominal aortic aneurysm screening. Technique: Dong scale and color Doppler images of the aorta and common iliac arteries are obtained. Comparison: None Findings: Proximal aorta: 3.2 x 2.9 cm Mid aorta: 2.2 x 2.6 cm Distal aorta: 2.4 x 2.2 cm Right common iliac artery: 1.9 x 1.7 cm Left common iliac artery: 1.4 x 1.6 cm Recommended imaging interval for ectatic aorta: 3.0-3.4 cm: 3 years Impression: Proximal aortic aneurysm measuring 3.2 cm. Dictated by Herbert Arcos MD @ 11/10/2023 6:47:36 AM (Electronically Signed) Procedure Note Herbert Arcos MD - 11/10/2023 For Patients: As a result of the Cures Act, medical imagingexams and procedure reports are released immediately into your electronicmedical record. You may view this report before your referring provider.If you have questions, please contact your health care provider. Examination: US abdominal aorta Indication: Abdominal aortic aneurysm screening. Technique: Dong scale and color Doppler images of the aorta and common iliac arteriesare obtained. Comparison: None Findings: Proximal aorta: 3.2 x 2.9 cm Mid aorta: 2.2 x 2.6 cm Distal aorta: 2.4 x 2.2 cm Right common iliac artery: 1.9 x 1.7 cm Left common iliac artery: 1.4 x 1.6 cm Recommended imaging interval for ectatic aorta: 3.0-3.4 cm: 3 years Impression: Proximal aortic aneurysm measuring 3.2 cm. Dictated by Herbert Arcos MD @ 11/10/2023 6:47:36 AM (Electronically Signed) Paul Medina MD US * URINE ALBUMIN TO CREATININE RATIO, RANDOM (10/25/2023 10:52 AM QUANTITATIVE ANALYST DEVELOPER) ALB RAND URINE <12.0 mg/L 10/25/2023 7:09 PM QUANTITATIVE ANALYST DEVELOPER [facility] CREATININE,URINE 1.23 g/L 10/25/19 7:09 PM QUANTITATIVE ANALYST DEVELOPER [facility] ALBUMIN TO CREATININE RATIO,RAND UR 10/25/2023 7:09 PM QUANTITATIVE ANALYST DEVELOPER [facility] Comment:Urine Albumin below measurement range, unable to calculate. Urine URINE SPECIMEN / Unknown Non-Blood / Unknown 10/25/2023 10:52 AM QUANTITATIVE ANALYST DEVELOPER 10/25/2023 10:52 AM QUANTITATIVE ANALYST DEVELOPER Narrative [facility] - 10/25/2023 7:09 PM QUANTITATIVE ANALYST DEVELOPER If Albumin to Creatinine Ratio is elevated, consider the following: ? Elevations seen with incipient nephropathy associated ?? with diabetes mellitus or hypertension. Stress, exercise,hematuria, ?? and urinary tract infection may also produce elevated results. If clinically indicated, confirm with ?24 Hour Albumin to Creatinine Ratio. ?? Paul Medina MD URINE [facility] [address] [place] [address], [place] * HEMOGLOBIN (10/25/2023 10:49 AM QUANTITATIVE ANALYST DEVELOPER) HEMOGLOBIN 14.6 13.5 - 17.5 g/dL 10/25/2023 12:25 PM QUANTITATIVE ANALYST DEVELOPER [facility] MCV 94 80 - 100 fL 10/25/2023 12:25 PM QUANTITATIVE ANALYST DEVELOPER [facility] Blood BLOOD SPECIMEN / Unknown Venipuncture / Unknown 10/25/2023 10:49 AM QUANTITATIVE ANALYST DEVELOPER 10/25/2023 10:49 AM QUANTITATIVE ANALYST DEVELOPER Paul Medina MD HEMATOLOGY Performing Organization Address [facility] de Phone Number [facility] [address] [place] [address], * (ABNORMAL) HEMOGLOBIN A1C MONITORING (POCT) (10/25/2023 10:49 AM QUANTITATIVE ANALYST DEVELOPER) HEMOGLOBIN A1C MONITORING (POCT) 7.3(H) <=6.4 % 10/25/2023 10:58 AM QUANTITATIVE ANALYST DEVELOPER [facility] Blood BLOOD SPECIMEN / Unknown Venipuncture / Unknown 10/25/2023 10:49 AM QUANTITATIVE ANALYST DEVELOPER 10/25/2023 10:49 AM QUANTITATIVE ANALYST DEVELOPER Narrative [facility] - 10/25/2023 10:58 AM QUANTITATIVE ANALYST DEVELOPER ? (<=6.9%) ? Indicates good control ? (7.0% to 7.9%) ? Indicates fair control ? (>=8.0%) ? Indicates poor control ?? NOTE: ??These thresholds are guidelines and ?individual targets may vary. Falsely low levels may be seen with: Recent Transfusion, Recent Significant Blood Loss, Hemolytic Diseases, or Falsely elevated levels may be seen with: Untreated Anemias, Splenectomy ? Paul Medina MD CHEMISTRY Performing Organization Address [facility] de Phone Number [facility] [address] [place] [address], [place] [phone] * (ABNORMAL) LIPID PANEL (10/25/2023 10:49 AM QUANTITATIVE ANALYST DEVELOPER) CHOLESTEROL,TOTAL 209(H) 100 - 199 mg/dL 10/25/2023 5:[address] [facility] Comment: Cholesterol, Total Reference Ranges Desirable <200 mg/dL Borderline 200-239 mg/dL High >=240 mg/dL TRIGLYCERIDES 585(H) <150 mg/dL 10/25/2023 5:[address] [facility] HDL CHOLESTEROL 30(L) >40 mg/dL 5:[address] [facility] NON-HDL CHOLESTEROL 179(H) <145 mg/dl 10/25/2023 5:[address] [facility] CHOL/HDL RATIO 6.97(H) <4.50 10/25/2023 5:[address] [facility] LDL CHOLESTEROL 5:[address] [facility] Comment:Invalid LDL when Tri g >400. VLDL CHOLESTEROL COMMENT 10/25/2023 5:[address] [facility] Comment:Unable to calculate VLDL. PROVIDER ORDERED STATUS RANDOM 10/25/2023 5:[address] [facility] Blood BLOOD SPECIMEN / Unknown Venipuncture / Unknown 10/25/2023 10:49 AM QUANTITATIVE ANALYST DEVELOPER 10/25/2023 10:49 AM QUANTITATIVE ANALYST DEVELOPER Paul Medina MD CHEMISTRY [facility] [address] [address], * (ABNORMAL) BASIC METABOLIC PANEL (10/25/2023 10:49 AM QUANTITATIVE ANALYST DEVELOPER) SODIUM 138 136 - 145 mmol/L 10/25/2023 5:[address] [facility] POTASSIUM 4.3 3.5 - 5.1 mmol/L 10/25/2023 5:[address] [facility] CHLORIDE 100 98 - 107 mmol/L 10/25/2023 5:[address] [facility] CO2,TOTAL 24 22 - 29 mmol/L 10/25/2023 5:[address] [facility] ANION GAP 14 5 - 18 10/25/2023 5:[address] [facility] GLUCOSE 225(H) 70 - 99 mg/dL 10/25/2023 5:[address] [facility] CALCIUM 9.3 8.8 - 10.2 mg/dL 10/25/2023 5:[address] [facility] BUN 17 8 - 23 mg/dL 10/25/2023 5:[address] [facility] CREATININE 1.28(H) 0.70 - 1.20 mg/dL 10/25/2023 5:[address] [facility] BUN/CREAT RATIO 13 10 - 20 5:[address] [facility] eGFR 62(L) >90 mL/min/1.7 3m2 10/25/2023 5:[address] [facility] Comment:As of 2022, eG FR is calculated by the CKD-EPI creatinine equation without race adjustment. ??eGFR can be influenced by muscle mass, exercise, and diet. ??The reported eGFR is an estimation only and is only applicable if the renal function is stable. Blood BLOOD SPECIMEN / Unknown Venipuncture / Unknown 10/25/2023 10:49 AM QUANTITATIVE ANALYST DEVELOPER 10/25/2023 10:49 AM QUANTITATIVE ANALYST DEVELOPER Paul Medina MD CHEMISTRY [facility] [address] [place] [address], * PSA TOTAL SCREEN - Dx Auto-associated (10/25/2023 10:49 AM QUANTITATIVE ANALYST DEVELOPER) PSA TOTAL (SCREEN) 0.97 <4.00 ng/mL 10/25/2023 5:[address] [facility] Blood BLOOD SPECIMEN / Unknown Venipuncture / Unknown 10/25/2023 10:49 AM QUANTITATIVE ANALYST DEVELOPER 10/25/2023 10:49 AM QUANTITATIVE ANALYST DEVELOPER Narrative [facility] - 10/25/2023 5:39 PM QUANTITATIVE ANALYST DEVELOPER The test method changed on 04/19/2023. If this test has been used for serial monitoring, rebaselining is recommended. Rebaselining consists of 2 measurements, collected 3-6 weeks apart. The Fadi Elecsys total PSA assay is an electrochemiluminescence immunoassay ECLIA performed on the Fadi Veronica e immunoassay analyzers. Values obtained with different assay methods may be different and cannot be used interchangeably. Paul Medina MD [facility] [address] [place] [address], [place] from Last 3 Months Advance Directives Latest Code Status on File Code Status Date Activated Date Inactivated Comments Full Code 02/04/2022 1:03 PM 02/08/2022 2:02 PM Question Answer Comments Code Status Discussion: Per Existing Order Code Status History Code Status Date Activated Date Inactivated Comments Full Code 08/05/2014 11:43 AM 08/05/2014 11:02 PM Full Code 01/10/2012 11:10 AM 01/11/2012 1:20 PM Care Teams Audiology Doctor Relationship Specialty Start Date End Date Paul Medina MD [address] [place] [address] PCP - General Family Practice 08/01/17
--- OUTSIDE RECORDS SUMMARY | 2023-11-15 17:41 | XMS_ITS | Continuity of Care Document ---
Author Name Unknown Organization [facility] Address [address] [place] [address] Phone Care Team Providers Care Assistant Warehouse Manager Name Role Phone Roxy CASTILLO, PhD, Gee Unavailable Unavai lable Allergies, Adverse Reactions, Alerts Substance Reaction Status Criticality lisinopril Active No Information omega-3 acid ethyl esters Active No Information metformin Active No Information latex Active No Information gemfibrozil Active No Information codeine Active No Information POTASSIUM CLAVULANATE Active No Inf ormation AMOXICILLIN TRIHYDRATE Active No In formation omega-3 acid ethyl esters constipation Active No Information latex rash Active No Information gemfibrozil constipation Active No Information codeine rash Active No Information POTASSIUM CLAVULANATE nausea, vomiting Active No Information AMOXICILLIN TRIHYDRATE nausea, vomiting Active N o Information adhesive tape rash Active No Information Medications Medication Instructions Dosage Effective Dates (start - stop) Status Comments IRON (unknown strength) Not Available - Active FERROUS SULFATE (unknown strength) Not Available - Active ASPIRIN (unknown strength) Not Available - Active VITAMIN D2 (unknown strength) Not Available - Active FLONASE ALLERGY RELIEF (unknown strength) Not Available - Active LOSARTAN POTASSIUM (unknown strength) Not Available - Active METOPROLOL SUCCINATE (unknown strength) Not Available - Active PANTOPRAZOLE SODIUM (unknown strength) Not Available - Active ROSUVASTATIN CALCIUM (unknown strength) Not Available - Active FENOFIBRATE (unknown strength) Not Available - Active ATENOLOL (unknown strength) Not Available - No Longer Active CRESTOR (unknown strength) Not Available - No Longer Active OMEPRAZOLE (unknown strength) Not Available - No Longer Active VITAMIN D3 (unknown strength) Not Available - No Longer Active Procedures Procedure Date Postop Followup Visit TLIF - Includes PSF at the same level - PA MERRITT FACETC/FRMT ARTHRD LUM 1 Posterior Instrumentation, 3-6 Segments - PA PEEK/ Cage/ Implant, For Interbody Fusio n - PA TLIF - Includes PSF at the same level Ap MERRITT FACETC/FRMT ARTHRD LUM 1 Posterior Instrumentation, 3-6 Segments PEEK/ Cage/ Implant, For Interbody Fusio n Autograft, From Same Incision 2 Allograft, Morcelized, and/or BMP Office/Outpatient Visit,Est, Mod 2021 OFFICE/OUTPATIENT VISIT EST Phone Office/Outpatient Visit,New, Mod 2020 Office/Outpatient Visit,New, Mod 2015 Advance Directives Directive Yes / No Effective Date File Name No Information Encounters Encounter Description Practice Location Reason(s) For Visit Diagnoses Date Provider Providers Copied on Encounter [facility], [address], [place], [id number], [place] tel:[phone] [facility] [place] Arthrodesis status 2 Roxy Flynn. [facility] [place], [address], [place], [address], [place]. tel:[phone] Referring Provider: Paul Lewis, [email or web address] [facility], [place], [address] . tel:[phone] [facility], [address], [place], [id number], [place] tel:[phone] [facility] No Information 2 Anthony Gonzalez. [facility] [place], [address], [place], [place], [id number] , [place]. tel:[phone] Referring Provider: Paul Lewis [employer] [address], [place], [address] . tel:[phone] [facility], [address], [place], [id number], [place] tel:[phone] [facility] No Information 2 Roxy Flynn. [facility] [place], [address], [place], [address], [place]. [phone] Referring Provider: Paul Lewis [employer] [address], [place], [address] . tel:[phone] Office/Outpat ient Visit,Est, Mod [facility], [address], [place], [id number], [place] tel:[phone] [facility] Spinal stenosis, lumbar region with neurogenic claudication 2 Roxy Flynn. [facility] [place], [address], [place], [address], [place]. [phone] Referring Provider: Paul Lewis [employer] [address], [place], [address] . tel:[phone] OFFICE/OUTPAT IENT VISIT EST Phone [facility], [address], [place], [id number], [place] tel:[phone] [facility] No Information 1 Roxy Flynn. [facility] [place], [address], [place], [address], [place]. [phone] Referring Provider: Paul Lewis [employer] [address], [place], [address] . tel:[phone] Office/Outpat ient Visit,New, Mod [facility], [address], [place], [id number], [place] tel:[phone] [facility] Spondylolisthes is, lumbar regionSpinal stenosis, lumbar region with neurogenic claudication 1 Anthony Gonzalez. [facility], [address], [place], [place], [id number] , [place]. [phone] Referring Provider: Paul Lewis, [facility] [address] , [place], [address] . tel:[phone] [facility], [address], [facility] [place], [id number], [place] tel:[phone] [facility] Low back pain 1 Roxy Flynn. [facility] [place], [address], [place], [address], [place]. [phone] Office/Outpat ient Visit,[facility], [facility], [address], [place], [place], [id number], [place] tel:[phone] [facility] Spinal stenosis, lumbar regionOther intervertebral disc degeneration, lumbar region 6 Samantha Sanchez. [facility], [address] [place] [address], [address], [place], [place], [id number] , [place]. [phone] Referring Provider: Daniel Morgan, [facility] [place] [address], [address], [place], [address] . tel:[phone] Family History Family Member Type Diagnosis Age At Onset No Information Payers Payer name Insurance type Covered republican ID Giovana sotelosammie(s) [facility] [id number] [facility] [id number] Social History Type Description Quantity Date Captured Comments Alcohol Use Details Unknown Caffeine Use Details Unknown Tobacco Use Status Current non-smoker Smoking Status Never smoker Non-Smoking Tobacco Use Details : No Details Available : No Details Available Sex Male Vital Signs Date / Time: Height Weight BMI Pulse Rate Blood Pressure Temperature Respiratory Rate Body Surface Area Head Circumference Head Circ. Percentile Wt./Breezy. Percentile BMI percentile Pulse Ox Inhaled Ox 10:34 AM 74.00 in 135.171 kg (298.00 lbs) 38.2 6 kg/m eter (2) Chief Complaint And Reason For Visit No Information Reason For Referral Reason For Referral No Information History Of Present Illness Encounter Date Complaint History Of Prese nt Illness No Information Functional Status Date Functional Assessmen t No Information Instructions Date Instruction Additional Infor mation No Information Assessments Type Assessment Date No Information Patient Care Teams Name Effective Dates (start - stop) Status Members No Information
[2023-11-15] MEDS: KETOROLAC 30 MG/ML inj IM (19:05)
== END 2023-11-15 19:16 | disposition home or self-care (01) ==
PROVIDERS: Emergency Provider Emergency Medicine Emergency Medical Services; PCP Surgery
DX: S62.101A Fracture of unspecified carpal bone, right wrist, initial encounter for closed fracture (principal); W18.30XA Fall on same level, unspecified, initial encounter
CPT/HCPCS: 73110; 96372; 99284; J1885

== ENCOUNTER 2024-02-15 09:00 | Outpatient (RCR) | payer BC, MEDICARE, SELFPAY ==
--- NOTE | 2024-01-16 17:44 | OT.OPOE ---
OT Outpatient Ortho Eval OT Outpatient Ortho Eval* Start: 01/16/24 15:52 Freq: Status: Active Protocol: Document 01/16/24 17:02 LCN (Rec: 01/16/24 17:38 LCN [id number]) E-signed By Laverne Llanos, OTR/L, CLT OT OP Ortho Eval Details Complexity Complexity Low Insurance Information Insurance Information Blue Cross/Blue Shield, Medicare B Outpatient History/Precautions Current Condition/Medical Diagnosis Referring Provider Arthur Martin Treatment Diagnosis Stiffness of R Wrist s/p fracture Date of Onset 11/15/23 Precautions Lifting Restrictions Other Precautions <2# lifting. Wear velcro wrist cock up brace 23.5 of 24 hours per day, gentle finger, wrist ROM, no pushing up from chairs w R hand. Medical Conditions DM,HTN,CA,Metal Implants, Fibromyalgia,Arthritis Other Conditions Pt has complex history for many orthopedic needs with 2019 RTC repair/biceps tenotomy; left MF/RF/SF trigger finger, carpal tunnel procedure and L shoulder arthroscopic procedures on . Spinal stenosis, spondylolisthesis of lumbar spine with prior surgery. Having good recent success with getting glucose under better control with use of Ozempic (Oct 2023), new statin and changes in insulin. Medical/Functional History Medical History Reviewed Yes Prior Level of Function/Mobility Pt retired after his work related R shoulder injury in 2019, finished in 2020. . 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 Hobbies Fishing, time with grand children, house remodelling. Ortho Subjective Subjective Subjective Evert Cruz is a retired 63 y/o who self describes being more sedentary with his orthopedic issues since retiring. He slipped on ice coming into his garage in October 2023 and took his weight in R out stretched wrist/hand. Pt describes that he self-reduced it back into place before going into the [place] [facility]. X ray revealed R distal radius fracture with intraarticular extension, now dorsally angulated to 12 degrees with ulnar styoi d fracture and possibly scaphoid fracture. This has been managed operatively with the help of Dr. Arthur Martin. Pt reports swelling was really large at wrist and fingers at the start and pt self-opened thenar crease of cast to reduce pressure. His cast was removed as of 12/20/23 and he was placed in wrist cock up splint to be worn 23.5 of 24 hrs/day. Pain Assessment Pain Present Pain Present Pain Reported Location R wrist, circumferential Description Tightness,Pressure,Dull, Achy, Pulling,Heaviness Intensity 5 Range of Motion and Strength Wrist Range of Motion and Strength Wrist Range of Motion and Strength R shoulder reaches to >120 shoulder flexion. R Elbow flexes to 125 of 125, full EL EX to 180, no pain. No MMT per recent fracture history. Spination to 32 of 90, lacks 30 degree of pronation. WR EX to 40 of 60, flexion to 30 of 75 (circumferential pressure). RD to 15 of 20 ( pulls at TFCC area) and UD to 20 of 40 ( pulls at scaphoid area). R distal palmar crease measures 23.7. Digit shafts are full with spongy springy edema with restricts last 15% of full fist position . Has some numbness noted at IF and TH, stiffness at IF MCP and R CMC thumb opposes to middle finger but not ring/ small finger. No triggering noted in digits. 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 OT Problems Problems Problems Decreased Strength,Decreased Range of Motion,Decreased Dexterity,Pain,Lifting, Gripping,Pinching Problems Comments With my R hand, I can lift my coffee cup with two hands. I have to use my left hand for everything else right now. Has been able to return back to sleeping in bed recently, instead of using recliner. Pt has started weaning off othe brace overnight and while resting at home. ALwys wear to leave the house and for driving. Other Problems Writing,Opening Containers, Dressing,Fasteners Patient Potential Excellent Assessment Assessment Assessment After Evert's R distal radius/ ulnar styloid and likely scaphoid fractures, he is having difficulty with edema, pain, ROM and strength loss of R hand/wrist/forearm limiting daily tasks. He would benefit from skilled OT to address these areas. Occupational Therapy Treatment Plan - OP Potential Rehabilitation Potential Good Set Goals Goals Set with Patient Yes Goals Goals In 10-12 weeks, Evert will demonstrate:? 1) Decreased pn to <2/10 80% of the time with sustained gripping, carrying groceries, and using hand tools. 2) I HEP for stretching, gradual strengthening and self mgmt strategies. 3) improved R bead wrapper strength to 40# and pinch to 12# with R thumb pain < 1/10. Treatment Plan Treatment Plan Evaluation,Edema Control,Joint Mobilization,Manual Therapy, Therapeutic Exercise,Self Care /Home Management,Education Expected Frequency 1-2x Week Expected Duration 8-10 Weeks Home Program Home Program Home Program Initiated Home Program Specifics SROM placing and holding at WR EX, flexion supination and pronation without any external manual assistance. Lymphatic self massage and compression glove use Recertification Information Recertification Information Initial Certification Date 01/16/24 Recertification Due Date 04/15/24 Provider Signature Shows Agreement With POC & Medical Necessity Physician Comment/Change Comment or Changes Physician NPI Number #
--- NOTE | 2024-02-08 17:32 | OT.OPODN ---
OT Outpatient Ortho Daily Note OT Outpatient Ortho Daily Note* Start: 01/16/24 15:52 Freq: Status: Active Protocol: Document 02/08/24 17:24 LCN (Rec: 02/08/24 17:32 LCN [id number]) E-signed By Laverne Llanos, OTR/L, CLT Type of Note Type of Note Type of Note Daily Note,Note to MD Visit Number 5 Insurance Information Insurance Information Blue Cross/Blue Shield, Medicare B Outpatient History/Precautions Current Condition/Medical Diagnosis Referring Provider Arthur Martin Treatment Diagnosis Stiffness of R Wrist s/p fracture Date of Onset 11/15/23 Precautions Lifting Restrictions Other Precautions <2# lifting. Wear velcro wrist cock up brace 23.5 of 24 hours per day, gentle finger, wrist ROM, no pushing up from chairs w R hand. Medical Conditions DM,HTN,CA,Metal Implants, Fibromyalgia,Arthritis Other Conditions Pt has complex history for many orthopedic needs with 2019 RTC repair/biceps tenotomy; left MF/RF/SF trigger finger, carpal tunnel procedure and L shoulder arthroscopic procedures on . Spinal stenosis, spondylolisthesis of lumbar spine with prior surgery. Having good recent success with getting glucose under better control with use of Ozempic (Oct 2023), new statin and changes in insulin. Medical/Functional History Medical History Reviewed Yes Prior Level of Function/Mobility Pt retired after his work related R shoulder injury in 2019, finished in 2020. . 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 Hobbies Fishing, time with grand children, house remodelling. Ortho Subjective Subjective Subjective Evert has been newly able to eat with an adapted fork and push the toilet tank button with right hand. Has been washing dishes in warm/hot water which feels good. Was able to pour coffee with R hand today...sore though! Especially sore at CC area, edi with PROM supination, WR FL. Evert Cruz is a retired 63 y/o who self describes being more sedentary with his orthopedic issues since retiring. He slipped on ice coming into his garage in October 2023 and took his weight in R out stretched wrist/hand. Pt describes that he self-reduced it back into place before going into the [place] [facility]. X ray revealed R distal radius fracture with intraarticular extension, now dorsally angulated to 12 degrees with ulnar styoi d fracture and possibly scaphoid fracture. This has been managed operatively with the help of Dr. Arthur Martin. Pt reports swelling was really large at wrist and fingers at the start and pt self-opened thenar crease of cast to reduce pressure. His cast was removed as of 12/20/23 and he was placed in wrist cock up splint to be worn 23.5 of 24 hrs/day. Pain Assessment Pain Present Pain Present Pain Reported Location R wrist, circumferential Description Tightness,Pressure,Dull, Achy, Pulling,Heaviness Intensity 5 OT OP Daily Ortho Note/Assessment Therapeutic Exercise Therapeutic Exercise Minutes (minutes) 10 Therapeutic Exercise Comments Cont w self tractioning stretching into wrist flexion with 5 second glides x 10 reps , able to return demo from visual aide. AROM glides with proprioceptive tasks (wrist washer maze). He does well with the motions, mild/mod compensation with shoulder. Holding end ROM of supination is really hard. PLacing and holding activities after SROM end ranges. Manual Therapy Manual Therapy Minutes (minutes) 30 Manual Therapy Comments Applied paraffin dip bath x 10 layers for managing stiffness , then LLPS for all wrist planes, STM of forearm muscle bulk/flexors extensors, IF MCP /PIP, TH MP and palmar intrinsic. Improves to WR EX 60 AROM and 70 AAROM and WR FL AA/AROM improved to 35/38 ( harder than last visit). Supination AA to 60 of 90 degrees. Opposes TH to mid phalanx of small finger after IASTM. Total Occupational Therapy Time Occupational Therapy Minutes 40 Home Program Home Program Home Program Initiated Home Program Specifics SROM placing and holding at WR EX, flexion supination and pronation without any external manual assistance. Lymphatic self massage and compression glove use Range of Motion and Strength Wrist Range of Motion and Strength Wrist Range of Motion and Strength R shoulder reaches to >120 shoulder flexion. R Elbow flexes to 125 of 125, full EL EX to 180, no pain. No MMT per recent fracture history. Spination to 32 of 90, lacks 30 degree of pronation. WR EX to 40 of 60, flexion to 30 of 75 (circumferential pressure). RD to 15 of 20 ( pulls at TFCC area) and UD to 20 of 40 ( pulls at scaphoid area). R distal palmar crease measures 23.7. Digit shafts are full with spongy springy edema with restricts last 15% of full fist position . Has some numbness noted at IF and TH, stiffness at IF MCP and R CMC thumb opposes to middle finger but not ring/ small finger. No triggering noted in digits. 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 Goniometric Comments Goniometric Comments Goniometric Comments 02/08/24-- WR EX 60 AROM and 70 AAROM and WR FL AA/AROM improved to 35/38 (harder than last visit). Supination AA to 60 of 90 degrees. Opposes TH to mid phalanx of small finger after IASTM 01/18/24-- Improves to 50 degrees WR FL AROM and 62 degrees AAROM. WR FL AAROM and AROM 45/ SPination AA to 55 of 90 degrees. OT Problems Problems Problems Decreased Strength,Decreased Range of Motion,Decreased Dexterity,Pain,Lifting, Gripping,Pinching Problems Comments With my R hand, I can lift my coffee cup with two hands. I have to use my left hand for everything else right now. Has been able to return back to sleeping in bed recently, instead of using recliner. Pt has started weaning off othe brace overnight and while resting at home. ALwys wear to leave the house and for driving. Other Problems Writing,Opening Containers, Dressing,Fasteners Patient Potential Good Assessment Assessment Assessment Still having pain with ROM but less stiff and sore at TFCC, especially PROM WR FL, supination. Progression with use of hand for light household tasks, washing dishes, wiping counters, brushing teeth. After Evert's R distal radius/ ulnar styloid and likely scaphoid fractures, he is having difficulty with edema, pain, ROM and strength loss of R hand/wrist/forearm limiting daily tasks. He would benefit from skilled OT to address these areas. Occupational Therapy Treatment Plan - OP Potential Rehabilitation Potential Good Set Goals Goals Set with Patient Yes Goals Goals In 10-12 weeks, Evert will demonstrate:? 1) Decreased pn to <2/10 80% of the time with sustained gripping, carrying groceries, and using hand tools. 2) I HEP for stretching, gradual strengthening and self mgmt strategies. 3) improved R cartridge assembler strength to 40# and pinch to 12# with R thumb pain < 1/10. Treatment Plan Treatment Plan Evaluation,Edema Control,Joint Mobilization,Manual Therapy, Therapeutic Exercise,Self Care /Home Management,Education Expected Frequency 1-2x Week Expected Duration 8-10 Weeks Occupational Therapy Billing Units Treatment Minutes Timed Treatment Minutes 40 Total Treatment Minutes 40 Billing Units Manual Therapy 2 Therapeutic Exercise 1
== END 2024-06-14 23:59 | disposition home or self-care (01) ==
PROVIDERS: PCP Surgery; Visit Provider Orthopaedic Surgery Sports Medicine
DX: S62.101A Fracture of unspecified carpal bone, right wrist, initial encounter for closed fracture (principal); Z51.89 Encounter for other specified aftercare
CPT/HCPCS: 97110; 97140; 97165; 97530; 97535; X5282

== ENCOUNTER 2024-07-18 08:45 | Outpatient (RCR) | payer BC, MEDICARE, SELFPAY | END 2024-07-18 11:00 | disposition home or self-care (01) | PROVIDERS: PCP Surgery; Visit Provider Orthopaedic Surgery Hand Surgery | DX: S62.101P Fracture of unspecified carpal bone, right wrist, subsequent encounter for fracture with malunion (principal); Z98.890 Other specified postprocedural states; M79.641 Pain in right hand; M25.641 Stiffness of right hand, not elsewhere classified; R60.0 Localized edema; Z51.89 Encounter for other specified aftercare | CPT/HCPCS: 97110; 97166; X5282 ==

== ENCOUNTER 2025-05-29 10:45 | Outpatient (RCR) | payer MEDICARE, BC, SELFPAY | END 2025-09-06 08:46 | disposition home or self-care (01) | PROVIDERS: PCP Surgery; Visit Provider Physician Assistant | DX: Z48.89 Encounter for other specified surgical aftercare (principal); M48.062 Spinal stenosis, lumbar region with neurogenic claudication; Z51.89 Encounter for other specified aftercare | CPT/HCPCS: 97110; 97162; 97530 ==